=== PATIENT | female | born 1955 | race Caucasian/White ===

== ENCOUNTER → 2017-06-19 | Outpatient (CLI) | payer BC ==
[~2017-06-19] MED LIST: PREMPRO 0.3 MG-1 TAB PO
== END ==
LOC: MC.RAD 15:40
DX: Z12.31 Encounter for screening mammogram for malignant neoplasm of breast (principal)

== ENCOUNTER → 2018-09-19 | Outpatient (CLI) | payer BC | LOC: MC.RAD 16:07 | DX: Z12.31 Encounter for screening mammogram for malignant neoplasm of breast (principal) ==

== ENCOUNTER 2019-06-08 17:30 | Emergency (ER) | payer BC ==
[~2019-06-08] VITALS: Ht 167.6 cm; Wt 64.5 kg
[2019-06-08 17:35] VITALS: BP 136/81; TEMP 99.5
[2019-06-08] MEDS ORDERED: MOTRIN 200200 MG/TAB PO (17:55)
[2019-06-08] MEDS ORDERED: NORCO 325 MG-51 TAB PO (20:27)
[2019-06-08] MEDS ORDERED: CRUTCHES MC (20:29)
[2019-06-08 20:36] VITALS: PULSE 73
== END 2019-06-08 20:36 | disposition home or self-care (01) ==
LOC: COL.ER 17:30
DX: S82.142A Displaced bicondylar fracture of left tibia, initial encounter for closed fracture (principal); W19.XXXA Unspecified fall, initial encounter; X50.1XXA Overexertion from prolonged static or awkward postures, initial encounter
CPT/HCPCS: L1846

== ENCOUNTER → 2019-11-25 | Outpatient (CLI) | payer BC ==
[~2019-11-25] MED LIST changes: +CRUTCHES MC; +MOTRIN 200200 MG/TAB PO; +NORCO 325 MG-51 TAB PO
== END ==
LOC: MC.RAD 15:50
DX: Z12.31 Encounter for screening mammogram for malignant neoplasm of breast (principal)

== ENCOUNTER → 2021-04-01 | Outpatient (CLI) | payer BC | LOC: MC.RAD 09:12 | DX: Z12.31 Encounter for screening mammogram for malignant neoplasm of breast (principal) ==

== ENCOUNTER → 2022-05-03 | Outpatient (CLI) | payer OTHER | LOC: MC.RAD 14:45 | DX: Z12.31 Encounter for screening mammogram for malignant neoplasm of breast (principal) ==

== ENCOUNTER → 2022-05-19 | Outpatient (CLI) | payer OTHER | LOC: MC.RAD 13:58 | DX: N64.89 Other specified disorders of breast (principal) ==

== ENCOUNTER → 2022-11-29 | Outpatient (CLI) | payer OTHER | LOC: MC.RAD 13:50 | DX: Z12.31 Encounter for screening mammogram for malignant neoplasm of breast (principal); N64.89 Other specified disorders of breast ==

== ENCOUNTER → 2024-02-28 | Outpatient (CLI) | payer MEDICARE | LOC: MC.RAD 10:23 | DX: Z12.31 Encounter for screening mammogram for malignant neoplasm of breast (principal); N64.89 Other specified disorders of breast ==

== ENCOUNTER → 2024-03-03 | Outpatient (CLI) | payer MEDICARE | LOC: MC.RAD 07:00 | DX: C50.411 Malignant neoplasm of upper-outer quadrant of right female breast (principal) ==

== ENCOUNTER 2024-05-22 15:01 | Emergency (ER) | payer MEDICARE ==
[~2024-05-22] VITALS: Ht 167.6 cm; Wt 57.3 kg
[2024-05-22 15:11] VITALS: TEMP 98.1
[2024-05-22] MEDS ORDERED: ELIQUIS 5MG PO (20:04)
[2024-05-22] MEDS ORDERED: Apixaban 5 MG TABLET PO ONE (20:15)
[2024-05-22 20:19] VITALS: BP 113/65; PULSE 79
== END 2024-05-22 20:19 | disposition home or self-care (01) ==
LOC: COL.ER 15:01
DX: I82.622 Acute embolism and thrombosis of deep veins of left upper extremity (principal); C50.911 Malignant neoplasm of unspecified site of right female breast; Z79.899 Other long term (current) drug therapy